=== PATIENT | male | born 1985 | race Caucasian/White ===

== ENCOUNTER 2018-04-04 19:45 | Emergency (ER) | payer BC ==
[~2018-04-04] VITALS: Ht 180.3 cm; Wt 93.1 kg
[2018-04-04] MEDS ORDERED: ACETAMINOPHEN WITH CODEINE 300/30MG TABLET PO ONE (21:15)
[2018-04-04 21:46] VITALS: BP 117/77
== END 2018-04-04 22:36 | disposition home or self-care (01) ==
LOC: ER 19:45
DX: S43.102A Unspecified dislocation of left acromioclavicular joint, initial encounter (principal); V23.4XXA Motorcycle driver injured in collision with car, pick-up truck or van in traffic accident, initial encounter; Y93.89 Activity, other specified; Y92.410 Unspecified street and highway as the place of occurrence of the external cause
CPT/HCPCS: 73030; 99284; A4565